=== PATIENT | male | born 2000 | race African-American/Black ===

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

== ENCOUNTER 2022-10-02 15:02 | Inpatient (IN) | payer OTHER ==
[2022-10-02] MEDS ORDERED: SODIUM CHLORIDE 0.9% 1,000 ML IV ONE ×3 (15:49→18:37)
--- NOTE | 2022-10-02 15:59 | ED ---
Lower Extremity Injury HPI - General Chief Complaint: Extremity Injury, Lower Stated Complaint: LEG PAIN Time Seen by Provider: 10/02/22 15:43 Source: patient Mode of arrival: ambulatory Limitations: no limitations - History of Present Illness Initial Comments: Patient is a 22-year-old male presenting with chief complaint of bilateral thigh pain. Patient states about 2 days ago he was doing a new workout targeting the legs. He has had extreme muscle soreness to the upper thighs since then. He is having difficulty transferring from sitting to standing or getting out of the car. He also notes tea colored urine. No pain below the bilateral knees. No abdominal pain. No fevers or chills. No nausea or vomiting. No dysuria. No flank pain. No chest pain or difficulty breathing. - Related Data Home Medications Medication Instructions Recorded Confirmed No Known Home Medications 10/29/14 10/02/22 Allergies Allergy/AdvReac Type Severity Reaction Status Date / Time No Known Allergies Allergy Verified 10/02/22 19:55 Review of Systems ROS Statement: Those systems with pertinent positive or pertinent negative responses have been documented in the HPI. ROS Other: All systems not noted in ROS Statement are negative. Past Medical History Past Medical History: No Reported History History of Any Multi-Drug Resistant Organisms: None Reported Past Surgical History: No Surgical Hx Reported Past Psychological History: No Psychological Hx Reported Smoking Status: Vaper Past Alcohol Use History: None Reported Past Drug Use History: None Reported General Exam Limitations: no limitations General appearance: alert, in no apparent distress Head exam: Present: atraumatic, normocephalic, normal inspection Eye exam: Present: normal appearance, EOMI. Absent: scleral icterus, periorbital swelling Neck exam: Present: normal inspection, full ROM Respiratory exam: Present: normal lung sounds bilaterally. Absent: respiratory distress, wheezes, rales, rhonchi, stridor Cardiovascular Exam: Present: regular rate, normal rhythm, normal heart sounds. Absent: systolic murmur, diastolic murmur, rubs, gallop, clicks Back exam: Present: normal inspection Neurological exam: Present: alert, oriented X3, CN II-XII intact Psychiatric exam: Present: normal affect, normal mood Skin exam: Present: warm, dry, intact, normal color. Absent: rash Course Vital Signs 10/02/22 10/02/22 10/02/22 15:28 17:26 19:54 Temperature 98.2 F Pulse Rate 62 56 L Respiratory 18 14 Rate Blood Pressure 145/79 121/62 137/79 O2 Sat by Pulse 99 100 Oximetry 10/02/22 20:17 Temperature 98.2 F Pulse Rate 83 Respiratory 16 Rate Blood Pressure 140/92 O2 Sat by Pulse 100 Oximetry Medical Decision Making - Medical Decision Making Was pt. sent in by a medical professional or institution (, [facility], SOFTWARE ENGINEER DEVELOPER, urgent care, hospital, or correction...) When possible be specific @ -No Did you speak to anyone other than the patient for history (EMS, parent, family, police, friend...)? What history was obtained from this source @ -No Did you review nursing and triage notes (agree or disagree)? Why? @ -I reviewed and agree with nursing and triage notes Were old charts reviewed (outside hosp., previous admission, EMS record, old EKG, old radiological studies, urgent care reports/EKG's, correction records)? Report findings @ -No old charts were reviewed Differential Diagnosis (chest pain, altered mental status, abdominal pain women, abdominal pain men, vaginal bleeding, weakness, fever, dyspnea, syncope, headache, dizziness, GI bleed, back pain, seizure, CVA, palpatations, mental health, musculoskeletal)? @ -Differential Musculoskeletal Muscular strain, contusion, ligament sprain, fracture, arthritis, septic arthritis, bursitis, cellulitis, muscle spasm, nerve compression, DVT, arterial occlusion, herpes zoster, electrolyte abnormality, tumor.... This is not meant to be in all inclusive list EKG interpreted by me (3pts min.). @ -Sinus rhythm ventricular rate 63. VA interval 146. QRS 104. QT 402. QTC 409. Normal axis. X-rays interpreted by me (1pt min.). @ -None done CT interpreted by me (1pt min.). @ -None done U/S interpreted by me (1pt. min.). @ -None done What testing was considered but not performed or refused? (CT, X-rays, U/S, labs)? Why? @ -None What meds were considered but not given or refused? Why? @ -None Did you discuss the management of the patient with other professionals (professionals i.e. , [employer], SOFTWARE ENGINEER DEVELOPER, lab, RT, psych nurse, school social worker, regional otr company driver, teacher, special officer, outsole caser)? Give summary @ -I spoke with the [facility] physician on-call who accepted admission Was smoking cessation discussed for >3mins.? @ -No Was critical care preformed (if so, how long)? @ -No Were there social determinants of health that impacted care today? How? (Homelessness, low income, unemployed, alcoholism, drug addiction, transportat ion, low edu. Level, literacy, decrease access to med. care, long-term, rehab)? @ -No Was there de-escalation of care discussed even if they declined (Discuss DNR or withdrawal of care, Hospice)? DNR status @ -No What co-morbidities impacted this encounter? (DM, HTN, Smoking, COPD, CAD, Cancer, CVA, ARF, Chemo, Hep., AIDS, mental health diagnosis, sleep apnea, morbid obesity)? @ -None Was patient admitted / discharged? Hospital course, mention meds given and route, prescriptions, significant lab abnormalities, going to OR and other pertinent info. @ -Patient is a 22-year-old male presenting with chief complaint of bilateral thigh pain. Patient states several days ago he tried a new intense leg workout. He states that last night and today he had tea colored urine. Physical examination is unremarkable. Lab work is remarkable for creatinine kinase of [id number]. AST 176 a and ALT 184. Urine shows 3+ proteins trace ketones and large blood. Patient will be treated for rhabdomyolysis with aggressive IV fluid hydration. I spoke with the [facility] physician on-call who accepted admission. Patient is agreeable with this plan. I discussed this case with my attending Dr. Patterson Undiagnosed new problem with uncertain prognosis? @ -No Drug Therapy requiring intensive monitoring for toxicity (Heparin, Nitro, Insulin, Cardizem)? @ -No Were any procedures done? @ -No Diagnosis/symptom? @ -Rhabdomyolysis Acute, or Chronic, or Acute on Chronic? @ -Acute Uncomplicated (without systemic symptoms) or Complicated (systemic symptoms)? @ -Complicated Side effects of treatment? @ -No Exacerbation, Progression, or Severe Exacerbation? @ -No Poses a threat to life or bodily function? How? (Chest pain, [place], NC, pneumonia, PE, COPD, DKA, ARF, appy, cholecystitis, CVA, Diverticulitis, Homicidal, Suicidal, threat to staff... and all critical care pts) @ -No - Lab Data Result diagrams: 10/02/22 16:15 10/02/22 16:15 Lab Results 10/02/22 10/02/22 10/02/22 Range/Units 16:15 16:15 16:15 WBC 10.5 (4.0-11.0) k/uL RBC 5.36 (4.30-5.90) m/uL Hgb 14.8 (13.0-17.5) gm/dL Hct 46.6 (39.0-53.0) % MCV 86.9 (80.0-100.0) fL MCH 27.5 (25.0-35.0) pg MCHC 31.6 (31.0-37.0) g/dL RDW 13.2 (11.5-15.5) % Plt Count 220 (150-450) k/uL MPV 9.0 Neutrophils % 78 % Lymphocytes % 14 % Monocytes % 5 % Eosinophils % 2 % Basophils % 0 % Neutrophils # 8.2 H (1.3-7.7) k/uL Lymphocytes # 1.5 (1.0-4.8) k/uL Monocytes # 0.5 (0-1.0) k/uL Eosinophils # 0.2 (0-0.7) k/uL Basophils # 0.0 (0-0.2) k/uL Sodium 140 (137-145) mmol/L Potassium 3.8 (3.5-5.1) mmol/L Chloride 103 (98-107) mmol/L Carbon Dioxide 30 (22-30) mmol/L Anion Gap 7 mmol/L BUN 11 (9-20) mg/dL Creatinine 1.11 (0.66-1.25) mg/dL Est GFR (CKD-EPI)AfAm >90 (>60 ml/min/1.73 sqM) Est GFR (CKD-EPI)NonAf >90 (>60 ml/min/1.73 sqM) Glucose 93 (74-99) mg/dL Calcium 9.6 (8.4-10.2) mg/dL Phosphorus 4.5 (2.5-4.5) mg/dL Magnesium 2.1 (1.6-2.3) mg/dL Total Bilirubin 0.8 (0.2-1.3) mg/dL AST 1768 H (17-59) U/L ALT 184 H (4-49) U/L Alkaline Phosphatase 99 (38-126) U/L Creatine Kinase 331932 H* (55-170) U/L Total Protein 7.9 (6.3-8.2) g/dL Albumin 4.6 (3.5-5.0) g/dL Urine Color Dark Brown Urine Appearance Turbid (Clear) Urine pH 6.0 (5.0-8.0) Ur Specific [place] 1.028 (1.001-1.035) Urine Protein 3+ H (Negative) Urine Glucose (UA) Negative (Negative) Urine Ketones Trace H (Negative) Urine Blood Large H (Negative) Urine Nitrite Negative (Negative) Urine Bilirubin Negative (Negative) Urine Urobilinogen <2.0 (<2.0) mg/dL Ur Leukocyte Esterase Trace H (Negative) Amorphous Sediment Moderate H (None) /hpf Urine Bacteria Few H (None) /hpf Urine Mucus Many H (None) /hpf Disposition Clinical Impression: Rhabdomyolysis Disposition: ADMITTED IP TO THIS HOSP Condition: Fair Time of Disposition: 18:55
[2022-10-02 16:23] LABS: Basophils % (A) 0 %; Eosinophils # (A) 0.2 k/uL (0-0.7); Eosinophils % (A) 2 %; HCT 46.6 % (39.0-53.0); HGB 14.8 gm/dL (13.0-17.5); Lymphocytes # (A) 1.5 k/uL (1.0-4.8); Lymphocytes % (A) 14 %; MCH 27.5 pg (25.0-35.0); MCHC 31.6 g/dL (31.0-37.0); MCV 86.9 fL (80.0-100.0); Monocytes # (A) 0.5 k/uL (0-1.0); Monocytes % (A) 5 %; Neutrophils # (A) 8.2 k/uL (1.3-7.7); Neutrophils % (A) 78 %; Platelet Count 220 k/uL (150-450); RBC 5.36 m/uL (4.30-5.90); RDW 13.2 % (11.5-15.5); WBC 10.5 k/uL (4.0-11.0)
[2022-10-02 16:39] LABS: ALT 184 U/L (4-49); African American GFR (CKD) >90 (>60 ml/min/1.73 sqM); Albumin 4.6 g/dL (3.5-5.0); Alkaline Phosphatase 99 U/L (38-126); Anion Gap 7 mmol/L; Blood Urea Nitrogen 11 mg/dL (9-20); Calcium 9.6 mg/dL (8.4-10.2); Carbon Dioxide 30 mmol/L (22-30); Chloride 103 mmol/L (98-107); Glucose 93 mg/dL (74-99); Magnesium 2.1 mg/dL (1.6-2.3); Non-African American GFR(CKD) >90 (>60 ml/min/1.73 sqM); Phosphorus 4.5 mg/dL (2.5-4.5); Potassium 3.8 mmol/L (3.5-5.1); Sodium 140 mmol/L (137-145); Total Bilirubin 0.8 mg/dL (0.2-1.3); Total Protein 7.9 g/dL (6.3-8.2)
[2022-10-02 16:43] LABS: Amorphous Sediment,Urine Moderate /hpf; Appearance,Urine Turbid (Clear); Bacteria,Urine Few /hpf; Bilirubin,Urine Negative (Negative); Blood,Urine Large (Negative); Color,Urine Dark Brown; Glucose,Urine (UA) Negative (Negative); Ketones,Urine Trace (Negative); Leukocyte Esterase,Urine Trace (Negative); Mucus,Urine Many /hpf; Nitrite,Urine Negative (Negative); Protein,Urine 3+ (Negative); Specific Gravity,Urine 1.028 (1.001-1.035); Urobilinogen,Urine <2.0 mg/dL (<2.0)
[2022-10-02 17:18] LABS: AST 1768 U/L (17-59)
[2022-10-02 18:33] LABS: Creatine Kinase 155016 U/L (55-170)
[2022-10-02] MEDS ORDERED: NALOXONE 0.4 MG/ML 1 ML VIAL IV PRN (18:53)
[2022-10-02] MEDS: SODIUM CHLORIDE 0.9% 1,000 ML IV SCH (19:22)
[2022-10-02] MEDS ORDERED: MORPHINE SULFATE 4 MG/ML SYRINGE IVP STA (19:26)
[2022-10-02 20:48] VITALS: RESP 18
--- NOTE | 2022-10-03 00:12 | P.HPIM ---
History of Present Illness H&P Date: 10/02/22 The patient is a 22-year-old male with known PMH who presents to the emergency room with complaints of bilateral leg pain and soreness. The patient reports that he had an intense lower body workout 2 days ago which lasted for roughly 2 hours and included several drop sets and supersets. The patient states that he was trying to push himself. Following [place], he gradually developed soreness which progressed and became severe earlier today. He also noticed that his urine appeared dark which prompted him to come to the emergency room. The patient states that he has been having pain with palpation of the bilateral lower extremities most prominently the left thigh. He is also unable to transfer himself or ambulate appropriately due to the pain. At time of interview, he denied experiencing pain at rest. He also denied experiencing numbness or tingling of the legs. Denied experiencing chest discomfort or shortness of breath. Denied nausea, vomiting, fever, chills. Evaluation in the emergency room revealed a creatine kinase of [id number], AST 1768 and ALT 184. ED documentation reviewed and case discussed with ED provider. Review of systems: Pertinent positives and negatives as discussed in HPI, a complete review of systems was performed and all other systems are negative. Physical examination: Vital signs reviewed General: non toxic, no distress, appears at stated age, normal weight Derm: no unusual rashes/lesions, warm Head: atraumatic, normocephalic, symmetric Eyes: EOMI, no lid lag, anicteric sclera, pupils equal round reactive to light ENT: Nose and ears atraumatic Neck: No cervical lymphadenopathy, trachea midline, supple Mouth: no lip lesion, mucus membranes moist Cardiovascular: S1S2 reg, no murmur, positive dorsalis pedis pulse bilateral, no edema Lungs: CTA bilateral, no rhonchi, no rales, no accessory muscle use Abdominal: soft, nontender to palpation, no guarding Ext: muscle strength 4 out of 5 bilateral lower extremities with strength 5 out of 5 elsewhere, no gross muscle atrophy, no contractures, Neuro: CN II-XI grossly intact, no gross focal neuro deficits Psych: Alert, oriented, appropriate affect Assessment: Rhabdomyolysis, likely secondary to excessive training Transaminitis Imaging: None performed Data Review: Evaluation in the emergency room revealed a creatine kinase of [id number], AST 1768 and ALT 184 Plan: C/w IVFs NS 200 ml/hr Monitor CK levels Transaminitis also likely secondary to severe rhabdomyolysis Continue to monitor LFTs DVT prophylaxis: Heparin subq The patient is admitted with an anticipated greater than 2 midnight stay for evaluation of rhabdomyolysis CODE STATUS: Full Code Discussed with: Patient Anticipated discharge date: 2-[address]: Home Past Medical History Past Medical History: No Reported History History of Any Multi-Drug Resistant Organisms: None Reported Past Surgical History: No Surgical Hx Reported Past Anesthesia/Blood Transfusion Reactions: No Reported Reaction Past Psychological History: No Psychological Hx Reported Smoking Status: Vaper Past Alcohol Use History: None Reported Past Drug Use History: None Reported - Past Family History Father Family Medical History: Hyperlipidemia Medications and Allergies Home Medications Medication Instructions Recorded Confirmed Type No Known Home Medications 10/29/14 10/02/22 History Allergies Allergy/AdvReac Type Severity Reaction Status Date / Time No Known Allergies Allergy Verified 10/02/22 19:55 Physical Exam Vitals: Vital Signs Temp Pulse Pulse Resp BP BP Pulse Ox 10/02/22 20:47 98.5 F 67 18 142/87 100 10/02/22 20:17 98.2 F 83 16 140/92 100 10/02/22 19:54 137/79 10/02/22 17:26 56 L 14 121/62 100 10/02/22 15:28 98.2 F 62 18 145/79 99 Intake and Output 10/02/22 10/02/22 10/03/22 14:59 22:59 06:59 Other: Weight 120.656 kg Results CBC & Chem 7: 10/02/22 16:15 10/02/22 16:15 Labs: Abnormal Lab Results - Last 24 Hours (Table) 10/02/22 10/02/22 10/02/22 Range/Units 16:15 16:15 16:15 Neutrophils # 8.2 H (1.3-7.7) k/uL AST 1768 H (17-59) U/L ALT 184 H (4-49) U/L Creatine Kinase [id number] H* (55-170) U/L Urine Protein 3+ H (Negative) Urine Ketones Trace H (Negative) Urine Blood Large H (Negative) Ur Leukocyte Esterase Trace H (Negative) Amorphous Sediment Moderate H (None) /hpf Urine Bacteria Few H (None) /hpf Urine Mucus Many H (None) /hpf Thrombosis Risk Factor Assmnt - Choose All That Apply Any of the Below Risk Factors Present?: Yes Each Factor Represents 1 point: Obesity (BMI >25), Swollen legs (current) Thrombosis Risk Factor Assessment Total Risk Factor Score: 2 Thrombosis Risk Factor Assessment Level: Low Risk
[2022-10-03] MEDS: SODIUM CHLORIDE 0.9% 1,000 ML IV SCH ×3 (03:38→09:15)
[2022-10-03] MEDS: HEPARIN SODIUM,PORCINE/PF 5,000 UNIT/0.5 ML SYRINGE SQ SCH ×2 (09:14→17:32)
[2022-10-03] MEDS ORDERED: LACTATED RINGERS 1,000 ML IV SCH (11:15)
[2022-10-03] MEDS: MORPHINE SULFATE 4 MG/ML SYRINGE IV PRN ×2 (11:26→22:02)
[2022-10-03 11:58] LABS: ALT 214 U/L (4-49); African American GFR (CKD) >90 (>60 ml/min/1.73 sqM); Albumin 3.6 g/dL (3.5-5.0); Albumin/Globulin Ratio 1.4; Alkaline Phosphatase 76 U/L (38-126); Anion Gap 10 mmol/L; Blood Urea Nitrogen 8 mg/dL (9-20); Calcium 8.6 mg/dL (8.4-10.2); Carbon Dioxide 21 mmol/L (22-30); Chloride 109 mmol/L (98-107); Globulin 2.6 g/dL; Glucose 80 mg/dL (74-99); Non-African American GFR(CKD) >90 (>60 ml/min/1.73 sqM); Sodium 140 mmol/L (137-145); Total Bilirubin 0.7 mg/dL (0.2-1.3); Total Protein 6.2 g/dL (6.3-8.2)
[2022-10-03 12:32] LABS: AST 2214 U/L (17-59)
[2022-10-03 13:00] LABS: HCT 43.7 % (39.0-53.0); HGB 13.1 gm/dL (13.0-17.5); Hypochromasia Slight; Mean Platelet Volume 11.3; Platelet Count 191 k/uL (150-450); RBC 4.85 m/uL (4.30-5.90); RDW 13.2 % (11.5-15.5); WBC 9.1 k/uL (4.0-11.0)
[2022-10-03] MEDS ORDERED: DEXTROSE 5% IN WATER 1,000 ML with SODIUM BICARB (1 MEQ/ML) 150 ML IV SCH (14:15)
[2022-10-03] MEDS: FUROSEMIDE 40 MG TAB PO SCH ×2 (15:05→15:36)
[2022-10-03 15:42] LABS: Amphetamine Screen,Urine Not Detected (NotDetected); Barbiturate Screen,Urine Not Detected (NotDetected); Benzodiazepines Screen,Urine Not Detected (NotDetected); Cocaine Screen,Urine Not Detected (NotDetected); Methadone Screen, Urine Not Detected (NotDetected); Opiate Screen,Urine Detected (NotDetected); Oxycodone Screen, Urine Not Detected (NotDetected); Phencyclidine Screen,Urine Not Detected (NotDetected); Tricyclic Antidepressant,Urine Not Detected (NotDetected); Urn Cannabinoid Scrn Detected (NotDetected)
--- NOTE | 2022-10-03 18:38 | P.PN ---
Subjective Progress Note Date: 10/03/22 Hospital course: Patient is a very pleasant 22-year-old male with no reported past medical history. He presented to the emergency department with a chief complaint of bilateral leg pain and soreness. Patient reported that he began and intense lower body work out 2 days ago and gradually developed soreness which progressively worsened in severity. Patient reports currently pain to bilateral thighs severe and was accompanied by dark brown urine so he came to the emergency department for evaluation. Patient underwent full evaluation in the emergency department. CBC completed unremarkable. BMP also unremarkable. Liver enzymes resulting with an elevated AST of 1768 and ALT of 184. Creatinine kinase 155,016. Urinalysis positive for protein, ketones, and blood. EKG was completed showing normal sinus rhythm at 63 bpm with no noted T-wave or ST abnor malities showing no signs of acute ischemia. Patient was admitted under our services for acute rhabdomyolysis. Physical exam: Patient continues to report moderate pain in his bilateral thighs at this time. Was placed for pain medication at this time. Currently showing no signs of compartment syndrome, however we will monitor closely. Discussed case with orthopedic surgeon and will notify immediately if patient develops any signs/symptoms of compartment syndrome for evaluation of intra-compartmental pressure at that time. Vital signs reviewed and stable. General: Nontoxic, no distress and appears stated age. Derm: Skin warm and dry, normal coloration for ethnicity. Head: Atraumatic, normocephalic and symmetric. Eyes: EOMs intact, no lid lag, and anicteric sclera Mouth: no lip lesions, mucus membranes moist Cardiovascular: regular rate and rhythm with normal S1S2, no murmur, positive posterior tibial pulses bilaterally, and cap refill < 2 seconds. Lungs: Respirations even, regular, and unlabored on room air. Lungs CTA bilaterally, no rhonchi, no rales, no wheezing, and no accessory muscle usage. Abdominal: soft, nontender to palpation, no guarding, no appreciable organomegaly Ext: Movement and sensation intact. No gross muscle atrophy, no edema, no contractures. Patient ambulating in room with steady gait. Muscles remains soft with no swelling noted to either side. Patient does report pain with palpation but denies having any paresthesia in no noted pallor. Neuro: Speech clear, face symmetrical and CN II-XII grossly intact with no noted focal neuro deficits Psych: Alert and oriented to person, place, time, and situation. Appropriate and pleasant affect. Assessment and Plan of Care: Severe rhabdomyolysis, believed to be secondary to excessive training Transaminitis secondary to above Metabolic acidosis -Continue neurovascular checks to bilateral lower extremities every 4 hours and as needed. -Nursing communication orders placed to monitor closely for signs/symptoms of compartment syndrome including changes in pain, pallor, parastasis, assess pulses and for any signs of paralysis or decreased muscle movement and/or strength. -Patient received a total of 4 L 0.9% normal saline and order placed to start patient on lactated Ringer's at 200 mL per hour. -Repeat morning labs completed showing worsening creatinine kinase greater than 160,000. CBC to be unremarkable. BMP revealing hyperchloremia with chloride of 109 and hypocarbia with bicarb of 21. Patient to be started on bicarb infusion at 200 mL per hour 5 hours to total 1 amp. -Order placed for repeat CMP and creatinine continues this evening and again tomorrow morning. Will monitor closely for any further signs/symptoms of kidney injury and monitor liver enzymes closely. -Urinalysis reviewed positive for protein, ketones, and blood. -Order placed for strict I's and O's. -Order placed for urine drug screen. CODE STATUS: Full code DVT prophylaxis: Heparin Discussed with: Patient, RN, and orthopedic surgeon access consultant Anticipated discharge date: Clinical course to determine Anticipated discharge place: Home Patient was seen independently by Nurse Pracitioner. This document was prepared using [employer] dictation software. Please allow for errors in electrical line splicer, while rare they do occur. This patient was seen independently by Navi Blum NP, I agree with documentation as above with the following additions: None. Objective - Vital Signs Vital signs: Vital Signs Temp 98.5 F 10/03/22 07:18 Pulse 59 L 10/03/22 07:18 Resp 18 10/03/22 07:18 BP 145/76 10/03/22 07:18 Pulse Ox 100 10/03/22 07:18 FiO2 Intake & Output 10/02/22 10/03/22 10/03/22 18:59 06:59 18:59 Intake Total 4190 Balance 4190 Weight 120.656 kg 120.656 kg Intake: Intake, IV Titration 3150 Amount Sodium Chloride 0.9% 1, 2150 000 ml @ 200 mls/hr IV . Q5H [facility] Rx#:[id number] Sodium Chloride 0.9% 1, 1000 000 ml @ 999 mls/hr IV . Q1H1M [facility] Rx#:[id number] Oral 1040 Other: # Voids 3 - Labs CBC & Chem 7: 10/03/22 05:31 10/04/22 00:00 Labs: Abnormal Lab Results - Last 24 Hours (Table) 10/02/22 10/02/22 10/02/22 Range/Units 16:15 16:15 16:15 Neutrophils # 8.2 H (1.3-7.7) k/uL AST 1768 H (17-59) U/L ALT 184 H (4-49) U/L Creatine Kinase 460369 H* (55-170) U/L Urine Protein 3+ H (Negative) Urine Ketones Trace H (Negative) Urine Blood Large H (Negative) Ur Leukocyte Esterase Trace H (Negative) Amorphous Sediment Moderate H (None) /hpf Urine Bacteria Few H (None) /hpf Urine Mucus Many H (None) /hpf 10/03/22 Range/Units 05:31 Neutrophils # (1.3-7.7) k/uL AST (17-59) U/L ALT (4-49) U/L Creatine Kinase >944302 H* (55-170) U/L Urine Protein (Negative) Urine Ketones (Negative) Urine Blood (Negative) Ur Leukocyte Esterase (Negative) Amorphous Sediment (None) /hpf Urine Bacteria (None) /hpf Urine Mucus (None) /hpf
[2022-10-03 19:33] LABS: ALT 308 U/L (4-49); African American GFR (CKD) >90 (>60 ml/min/1.73 sqM); Albumin 4.2 g/dL (3.5-5.0); Albumin/Globulin Ratio 1.4; Alkaline Phosphatase 75 U/L (38-126); Anion Gap 7 mmol/L; Blood Urea Nitrogen 6 mg/dL (9-20); Carbon Dioxide 31 mmol/L (22-30); Chloride 102 mmol/L (98-107); Globulin 2.9 g/dL; Glucose 110 mg/dL (74-99); Non-African American GFR(CKD) >90 (>60 ml/min/1.73 sqM); Potassium 3.4 mmol/L (3.5-5.1); Sodium 140 mmol/L (137-145); Total Bilirubin 0.6 mg/dL (0.2-1.3); Total Protein 7.1 g/dL (6.3-8.2)
[2022-10-03] MEDS: LACTATED RINGERS 1,000 ML IV SCH (20:12)
[2022-10-03 21:09] LABS: AST 3345 U/L (17-59)
[2022-10-03 21:10] LABS: Creatine Kinase >160000 U/L (55-170)
[2022-10-03] MEDS ORDERED: POTASSIUM CHLORIDE ER 20 MEQ TAB.ER PO STA (22:35)
[2022-10-04] MEDS: HEPARIN SODIUM,PORCINE/PF 5,000 UNIT/0.5 ML SYRINGE SQ SCH (00:15)
[2022-10-04] MEDS: LACTATED RINGERS 1,000 ML IV SCH ×2 (00:17→05:53)
[2022-10-04 00:41] LABS: ALT 330 U/L (4-49); African American GFR (CKD) >90 (>60 ml/min/1.73 sqM); Albumin 4.1 g/dL (3.5-5.0); Albumin/Globulin Ratio 1.4; Alkaline Phosphatase 75 U/L (38-126); Anion Gap 5 mmol/L; Blood Urea Nitrogen 6 mg/dL (9-20); Calcium 8.9 mg/dL (8.4-10.2); Carbon Dioxide 34 mmol/L (22-30); Chloride 100 mmol/L (98-107); Globulin 2.9 g/dL; Glucose 95 mg/dL (74-99); Non-African American GFR(CKD) >90 (>60 ml/min/1.73 sqM); Potassium 3.5 mmol/L (3.5-5.1); Sodium 139 mmol/L (137-145); Total Bilirubin 0.5 mg/dL (0.2-1.3)
[2022-10-04 01:14] VITALS: BP 121/77; PULSE 79; TEMP 98.5
[2022-10-04 01:44] LABS: AST 3084 U/L (17-59)
--- NOTE | 2022-10-04 03:39 | P.DS ---
Providers Date of admission: 10/02/22 18:45 Expected date of discharge: 10/04/22 Attending physician: Jessa Goyal MD Primary care physician: Stated None Hospital Course: The patient is a 22-year-old male with no known PMH who presented to the emergency room on 10/02 with complaints of bilateral leg pain and soreness. The patient had reported that he had a strenuous lower body work out 2 days prior to arrival. He initially became sore the following day but then also developed dark urine on the day of presentation, which prompted him to come to the emergency room. In the ED, the patient's laboratory evaluation revealed a cre atinine kinase level of 155,016, with AST 1768 and ALT 184. The patient was admitted for rhabdomyolysis and was given 4 L of normal saline IV fluids and placed on maintenance normal saline 200 mLs/Hr fluids. The patient reported no leg pain at rest at the time of admission. The patient's creatine kinase subsequently increased to greater than 160,000 with AST increasing to 3345 and ALT 308. The patient's pain also gradually increased and he required IV pain medication adequately controlled. The case was discussed with Dr. Mueller at [facility] who graciously accepted the patient for GI evaluation in light of significant rhabdomyolysis with transaminitis. The patient was in agreement with the transfer. Discharge diagnosis: Severe rhabdomyolysis, transaminitis A total of 35 minutes of time were spent preparing this complex discharge summary. Patient Condition at Discharge: Fair Plan - Discharge Summary Discharge Rx Participant: No New Discharge Prescriptions: No Action No Known Home Medications Discharge Medication List No Known Home Medications 10/29/14 [History] Follow up Appointment(s)/Referral(s): None,Stated [Primary Care Provider] - 1-2 days
[2022-10-04 06:48] LABS: Creatine Kinase >160000 U/L (55-170)
== END 2022-10-04 06:27 | disposition short-term general hospital (02) | DRG 351 ==
LOC: EC 15:02 → 5NMEDONC 18:45 → OBSVTOIN 10-03 18:38 → UNDODISOB 10-04 06:27
PROVIDERS: ADMIT Family Medicine; ATTEND Family Medicine
DX: M62.82 Rhabdomyolysis (principal); R74.01 Elevation of levels of liver transaminase levels; F17.290 Nicotine dependence, other tobacco product, uncomplicated; Z28.310 Unvaccinated for COVID-19; Z20.822 Contact with and (suspected) exposure to COVID-19; Z28.21 Immunization not carried out because of patient refusal; X50.0XXA Overexertion from strenuous movement or load, initial encounter; Y93.B9 Activity, other involving muscle strengthening exercises
CPT/HCPCS: 36415; 80053; 80306; 81001; 82550; 83735; 84100; 85025; 85027; 87635; 93005; 96361; 96372; 96374; 96376; 99284

== ENCOUNTER 2023-12-05 01:42 | Emergency (ER) | payer OTHER ==
[2023-12-05 01:52] VITALS: BP 146/84; PULSE 71; RESP 18; TEMP 98.6
--- NOTE | 2023-12-05 02:19 | ED ---
General Adult HPI - General Chief complaint: ENT Stated complaint: Sore Throat Time Seen by Provider: 12/05/23 01:55 Source: patient Mode of arrival: ambulatory Limitations: no limitations - History of Present Illness Initial comments: Dictation was produced using [employer] dictation software. please excuse any grammatical, word or spelling errors. Chief Complaint: 23-year-old male presents with sore throat x 1 day History of Present Illness: Patient is 23-year-old male who presents to the emergency department sore throat x 1 day. Patient denies any comorbidities. States he does have some nasal congestion. Complains of pain whenever he swallows. No obvious sick contacts. The ROS documented in this emergency department record has been reviewed and confirmed by me. Those systems with pertinent positive or negative responses have been documented in the HPI. All other systems are other negative and/or noncontributory. - Related Data Home Medications Medication Instructions Recorded Confirmed No Known Home Medications 10/29/14 10/02/22 Allergies Allergy/AdvReac Type Severity Reaction Status Date / Time No Known Allergies Allergy Verified 12/05/23 01:51 Review of Systems ROS Statement: Those systems with pertinent positive or pertinent negative responses have been documented in the HPI. ROS Other: All systems not noted in ROS Statement are negative. Past Medical History Past Medical History: No Reported History History of Any Multi-Drug Resistant Organisms: None Reported Past Surgical History: No Surgical Hx Reported Past Anesthesia/Blood Transfusion Reactions: No Reported Reaction Past Psychological History: No Psychological Hx Reported Smoking Status: Vaper Past Alcohol Use History: None Reported Past Drug Use History: None Reported - Past Family History Father Family Medical History: Hyperlipidemia General Exam - General Exam Comments Initial Comments: General: Well-appearing, nontoxic, no acute distress. Oral: Slight erythema to the pharynx Head: Normocephalic, atraumatic Eyes: PERRLA, EOMI ENT: Airway patent Chest: Nonlabored breathing Skin: No visual rash, normal skin tone Neuro: Alert and oriented 3 Musculoskeletal: No gross abnormalities Limitations: no limitations Course Vital Signs 12/05/23 01:50 Temperature 98.6 F Pulse Rate 71 Respiratory 18 Rate Blood Pressure 146/84 O2 Sat by Pulse 100 Oximetry Medical Decision Making - Medical Decision Making Was pt. sent in by a medical professional or institution (, PA, RIGGER APPRENTICE, urgent care, hospital, or prison...) When possible be specific @ -No Did you speak to anyone other than the patient for history (EMS, parent, family, police, friend...)? What history was obtained from this source @ -No Did you review nursing and triage notes (agree or disagree)? Why? @ -I reviewed and agree with nursing and triage notes Were old charts reviewed (outside hosp., previous admission, EMS record, old EKG, old radiological studies, urgent care reports/EKG's, prison records)? Report findings @ -No old charts were reviewed Differential Diagnosis (chest pain, altered mental status, abdominal pain women, abdominal pain men, vaginal bleeding, musculoskeletal, weakness, fever, dyspnea, syncope, headache, dizziness, GI bleed, back pain, seizure, CVA, palpatations, mental health)? @ -Pharyngitis, strep throat, uvulitis EKG interpreted by me (3pts min.). @ -None done X-rays interpreted by me (1pt min.). @ -None done CT interpreted by me (1pt min.). @ -None done U/S interpreted by me (1pt. min.). @ -None done What testing was considered but not performed or refused? (CT, X-rays, U/S, labs)? Why? @ -None What meds were considered but not given or refused? Why? @ -None Was smoking cessation discussed for >3mins.? @ -No Were there social determinants of health that impacted care today? How? (Homelessness, low income, unemployed, alcoholism, drug addiction, transportation, low edu. Level, literacy, decrease access to med. care, prison, rehab)? @ -No Was there de-escalation of care discussed even if they declined (Discuss DNR or withdrawal of care, Hospice)? DNR status @ -No What co-morbidities impacted this encounter? (DM, HTN, Smoking, COPD, CAD, Cancer, CVA, ARF, Chemo, Hep., AIDS, mental health diagnosis, sleep apnea, morbid obesity)? @ -None Was patient admitted / discharged? Hospital course, mention meds given and route, prescriptions, significant lab abnormalities, going to OR and other pertinent info. @ -23-year-old male with sore throat. Vital signs upon arrival are within acceptable limits. Physical examination shows well-appearing male with some inflammatory findings on the pharynx. Patient swabs sent. Patient became and patient did not want to wait for the results. He requested his discharge. He so that we can call him with the results become available. Did you discuss the management of the patient with other professionals (professionals i.e. , PA, RIGGER APPRENTICE, lab, RT, psych nurse, social sciences research scientist, clinical systems analyst, teacher, admissions officer, geriatric case manager)? Give summary @ -No Was critical care preformed (if so, how long)? @ -No Undiagnosed new problem with uncertain prognosis? @ -No Drug Therapy requiring intensive monitoring for toxicity (Heparin, Nitro, Insulin, Cardizem)? @ -No Were any procedures done? @ -No Diagnosis/symptom? Acute, or Chronic, or Acute on Chronic? Uncomplicated (without systemic symptoms) or Complicated (systemic symptoms)? @ -Pharyngitis Side effects of treatment? @ -No Exacerbation, Progression, or Severe Exacerbation? @ -No Poses a threat to life or bodily function? How? (Chest pain, USA, VT, pneumonia, PE, COPD, DKA, ARF, appy, cholecystitis, CVA, Diverticulitis, Homicidal, Suicidal, threat to staff... and all critical care pts) @ -No Disposition Clinical Impression: Pharyngitis Disposition: HOME SELF-CARE Condition: Good Instructions (If sedation given, give patient instructions): Pharyngitis (ED) Is patient prescribed a controlled substance at d/c from ED?: No Referrals: None,Stated [Primary Care Provider] - 1-2 days Time of Disposition: 03:36
== END 2023-12-05 03:37 | disposition home or self-care (01) ==
LOC: EC 01:42
DX: J02.9 Acute pharyngitis, unspecified (principal); F17.290 Nicotine dependence, other tobacco product, uncomplicated
CPT/HCPCS: 87636; 87651; 99283